=== PATIENT | female | born 1985 | race Hispanic/Latino ===

== ENCOUNTER 2019-12-18 15:47 | Emergency (ER) | payer SELFPAY ==
[2019-12-18] MEDS ORDERED: Acetaminophen 500 MG TAB ONE ×2 (16:23→16:24)
[2019-12-18] MEDS ORDERED: cefTRIAXone\\ROCEPHIN 2 GM VIAL ONE (16:24)
[2019-12-18] MEDS ORDERED: Ondansetron PF 4 MG/2 ML Vial ONE (16:24)
[2019-12-18] MEDS ORDERED: Sodium Chloride 0.9% 100 ML ONE (16:24)
[2019-12-18 16:27] LABS: Bacteria/HPF None Seen HPF (None Seen); Bilirubin Negative (Negative); Blood, Urine 2+ (Negative); Clarity Clear (Clear); Glucose, Urine (Dipstick) Normal (Negative); Leukocyte Negative Leu/uL (Negative); Nitrite Negative (Negative); Protein, Urine (Dipstick) Negative (Neg-Trace); RBC/HPF 21-50 HPF (0-3); Squamous Epithelial None Seen HPF (0-3); Urobilinogen Normal mg/dL (Less than 2)
[2019-12-18 16:28] LABS: Pregnancy Test - Urine (BHCG) Negative (Negative); Pregu Control Background? CLEAR/WHITE (CLR/WHITE); Pregu Control Bar Appear? YES (CONTROL BAR); Specific Gravity 1.021 (1.002-1.036)
[2019-12-18 16:47] LABS: #Eosinphils 0.1 thou/uL (0.0-0.7); #Lymphocytes 1.5 thou/uL (1.20-3.40); #Monocytes 1.4 thou/uL (0.11-0.59); #Neutrophils 14.8 thou/uL (1.40-6.50); %Basophils 0.2 % (0.0-1.0); %Eosinophils 0.6 % (0.0-10.0); %Lymphocytes 8.3 % (21.0-51.0); %Monocytes 7.7 % (0.0-10.0); %Neutrophils 83.2 % (42.0-75.0); Hemoglobin 14.9 g/dL (12.0-16.0); Mean Corpuscular HGB CONC 32.9 g/dL (32.0-36.0); Mean Corpuscular Hemoglobin 29.7 pg (27.0-31.0); Mean Corpuscular Volume 90.3 fL (78.0-98.0); Mean Platelet Volume 9.3 fL (7.4-10.4); Platelet Count 210 thou/uL (130-400); RBC Distribution Width 11.9 % (11.5-14.5); Red Blood Cell (RBC) Count 5.02 mill/uL (4.20-5.40); White Blood Cell (WBC) Count 17.7 thou/uL (4.8-10.8)
[2019-12-18 16:51] LABS: ALT (SGPT) 16 U/L (8-55); AST (SGOT) 18 U/L (5-34); Alkaline Phosphatase 67 U/L (40-110); Anion Gap 17 mmol/L (10-20); BUN (Urea Nitrogen) 10 mg/dL (7.0-18.7); Bilirubin, Total 0.5 mg/dL (0.2-1.2); Calc. Creatinine Clearance 0 mL/min (70-130); Calcium 9.4 mg/dL (7.8-10.44); Carbon Dioxide 23 mmol/L (22-29); Chloride 100 mmol/L (98-107); Estimated GFR-MDRD 84; Globulin 3.6 g/dL (2.4-3.5); Glucose 99 mg/dL (70-105); Potassium 4.1 mmol/L (3.5-5.1); Protein, Total 7.6 g/dL (6.0-8.3); Sodium 136 mmol/L (136-145)
--- NOTE | 2019-12-18 16:56 | CT ---
Exam: Abdomen CT without contrast Pelvic CT without contrast HISTORY: Right flank pain. Fevers chills. COMPARISON: 05/28/2015 FINDINGS: Abdomen CT: Lung bases:Clear Heart size: Normal heart size Aorta: Normal caliber Solid organs: Limited evaluation of the solid organs by the lack of IV contrast. Grossly no solid org an abnormality Lymph nodes: No gastrohepatic, retrocrural or periportal lymphadenopathy Gallbladder: No CT evidence of cholelithiasis or cholecystitis Mesentery: No mass, lymphadenopathy, free air or free fluid Kidneys: There is scarring in the upper pole the left kidney with associated cortical based calcifica tion measuring 0.5 cm. Bilaterally no uropathy Alimentary canal: Limited evaluation the lack of oral contrast. No evidence of bowel obstruction. Nor mal caliber appendix. CT PELVIS: No mass, adenopathy, free air or free fluid. Uterus and adnexal structures are grossly unremarkable Urinary bladder: Unremarkable. Osseous structures: No lytic or blastic lesions IMPRESSION: No evidence of obstructive uropathy.
--- NOTE | 2019-12-21 13:25 | EKG ---
Test Reason : Blood Pressure : / mmHG Vent. Rate : 116 BPM Atrial Rate : 116 BPM P-R Int : 128 ms QRS Dur : 074 ms QT Int : 334 ms P-R-T Axes : 033 048 026 degrees QTc Int : 464 ms Sinus tachycardia Otherwise normal ECG Confirmed by JARRETT ARAUZ ([id number]), health editor CEM ALVAREZ ([id number] on 12/21/2019 1:25:34 PM Referred By: Confirmed By:JARRETT ARAUZ
== END 2019-12-18 18:34 | disposition home or self-care (01) ==
LOC: ERS 15:47
DX: N12 Tubulo-interstitial nephritis, not specified as acute or chronic (principal); F41.9 Anxiety disorder, unspecified
CPT/HCPCS: 74176; 80053; 81003; 81015; 81025; 83605; 85025; 87040; 87077; 87086; 87186; 93005; 96361; 96365; 96375; J0696; J2405; J3490

== ENCOUNTER 2022-08-04 21:08 | Emergency (ER) | payer SELFPAY | END 2022-08-04 22:26 | disposition home or self-care (01) | LOC: ERS 21:08 | DX: U07.1 COVID-19 (principal) | CPT/HCPCS: 71045; 93005 ==